=== PATIENT | female | born 1950 | race Caucasian/White ===

== ENCOUNTER 2017-09-13 05:20 | Inpatient (IN) | payer OTHER ==
[2017-08-29 08:54] LABS: HEMATOCRIT 41.8 % (37.0-47.0); MCH 30.2 pg (26.0-34.0); MCHC 33.4 g/dL (28.0-37.0); MCV 90.3 fL (80.0-100.0); RBC 4.63 mil/uL (4.20-5.00); WBC 7.9 thou/uL (4.0-11.0)
[2017-08-29 09:04] LABS: URINE BILIRUBIN NEGATIVE (Negative); URINE BLOOD TRACE (Negative); URINE COLOR YELLOW; URINE GLUCOSE-RANDOM* NEGATIVE (Negative); URINE KETONES NEGATIVE (Negative); URINE LEUKOCYTES-REFLEX NEGATIVE (Negative); URINE PROTEIN (DIPSTICK) NEGATIVE (Negative); URINE SPECIFIC GRAVITY <= 1.005 (1.003-1.035); URINE UROBILINOGEN 0.2 E.U./dl (0.2-1.0)
[2017-08-29 09:05] LABS: ALBUMIN 3.6 g/dL (3.4-5.0); CALCIUM 9.1 mg/dL (8.5-10.1); CREATININE 0.7 mg/dL (0.6-1.0); POTASSIUM 3.9 mmol/L (3.5-5.1)
[~2017-09-13] VITALS: Ht 162.6 cm; Wt 78.5 kg
[2017-09-13] VITALS (9 sets, daily range): BP systolic 99–147; BP diastolic 37–76
--- NOTE | ~2017-09-13 | O ---
[facility] [place] [address] OPERATIVE REPORT Name: MARIO ALBERTO WILLIAMSON Room #: 410-P ADM IN M.R.#: [id number] Admission: 09/13/17 Attend Phys: Norman Shirley MD Discharge: Date of : 52 Report #: [id number] THIS REPORT FOR: //name// CC: Sanchez Shirley DATE OF SERVICE: 09/13/2017 PREOPERATIVE DIAGNOSIS: Right knee degenerative joint disease, severe. POSTOPERATIVE DIAGNOSIS: Right knee degenerative joint disease, severe. OPERATIVE PROCEDURE: Right total knee arthroplasty. SURGEON: Norman Shirley MD SLEEPER CUTTER: Dorita Landon PA-C INDICATIONS FOR SLEEPER CUTTER: During the course of operation, extensive manipulation, retraction and limb positioning was required. This was afforded to me by my press assistant and feeder. ANESTHESIA: General. INDICATIONS: See hospital H and P. IMPLANTS UTILIZED: [employer] knee system. We used a Legion cruciate retaining high flexion press-fit femur, size 5. We used a size 4 tibial tray. We used a 9 mm insert and we used a 32 mm patella. DESCRIPTION OF PROCEDURE: After adequate general anesthesia had been obtained, the patient's right lower extremity was prepped and draped in the usual meticulous sterile fashion. The limb was exsanguinated with gravity and tourniquet inflated to 350 torr. Anterior midline incision was made, subQ divided sharply. Hemostasis obtained with electrocautery. Medial parapatellar incision was made. Infrapatellar fat pad excised. Medial release performed. Drill was used to drill distal femur. This hole was enlarged, irrigated, suctioned, and the intramedullary guide placed the full length of the femur. The distal femoral cutting guide pinned at appropriate height and the distal femoral cut was made. The measuring device determined that a size 5 was the appropriate size for this patient. We marked the distal femur and impacted the cutting guide into position. The anterior, posterior and chamfer cuts were made. Rongeur was used to remove additional osteophytes. At this time, the ACL was transected, tibia translated anteriorly, the menisci [facility] [address] [place] [address] OPERATIVE REPORT Name: MARIO ALBERTO WILLIAMSON Room #: 410-P ADM IN M.R.#: [id number] Admission: 09/13/17 Attend Phys: Norman Shirley MD Discharge: Date of : 52 Report #: [id number] were excised. A drill was used in the central portion of the tibia. This hole was enlarged, irrigated, suctioned, and the intramedullary guide placed along the tibia. Proximal tibial cutting guide was placed at appropriate height. Proximal tibia cut was made. We found that the 4 tray gave us the best coverage on the tibia. We put the trial components in position with a 9 spacer. She had the best flexion and extension gap. Patella was then measured, cutting guide clamped into place, patellar cut was made, 32 template gave us the best coverage. Pedicles were drilled, trial component put in position. We took the knee through several cycles of flexion and extension to optimize the tibial rotation. The patella tracked normally. Tibial rotation was marked, distal femur punched. Trial components were removed. Tibial keel cuts were made. We irrigated the knee with both pulse lavage and antibiotic irrigation and the bone plugs were placed in the proximal tibia and distal femur. The cement was vacuum mixed and when it reached the appropriate consistency the knee was thoroughly dried, the tibial tray was cemented in place, excess cement was removed. The polyethylene was impacted in place and the femur impacted in place and the knee was taken out to 30 degrees of flexion with uniform compression placed across components. Patellar button was then cemented into place and again excess cement was removed. At this time, the knee was irrigated and irrigation was allowed to rest in the wound while the cement fully cured. When it had done so, the knee was irrigated, dried thoroughly, and inspected. Drains were placed superolaterally both deep and superficial. Retinacular layer closed with combination of interrupted [id number] #1 Vicryl as well as a running #1 Tevdek. SubQ closed with 2-0 Monocryl, skin closed with freddy. Sterile compressive dressing applied. Tourniquet deflated. <ELECTRONICALLY SIGNED> By: Norman Shirley MD 09/15/17 [id number] Norman Shirley MD /nt
[~2017-09-13 05:20] MED LIST: AMBIEN 5 MG TABL5 M1 PO; ASPIR 8181 MG PO; ATORVASTATIN CA40 MG PO; CALCIUM 600 +1 EAC1 PO; CELEBREX 200 M200 M1 PO; CENTRUM SILVER1 EAC4 PO; CLARITIN10 MG PO; ESTRADIOL 1 MG T1 M1 VAG; FISH OIL 1,001000 M2 PO; GLUCOSAMINE CH1 EAC2 PO; PRILOSEC 20 MG20 MG PO; STOOL SOFTENER100 M1 PO; VITAMIN D-32000 UNIT PO
[2017-09-14 04:36] VITALS: BP 109/49
[2017-09-14 05:41] LABS: HEMATOCRIT 36.2 % (37.0-47.0); HEMOGLOBIN 12.3 gm/dL (12.0-15.0); MCH 30.7 pg (26.0-34.0); MCHC 33.9 g/dL (28.0-37.0); MCV 90.7 fL (80.0-100.0); RBC 3.99 mil/uL (4.20-5.00); WBC 16.1 thou/uL (4.0-11.0)
[2017-09-14 08:00] VITALS: BP 117/59
[2017-09-14 13:11] VITALS: BP 111/42
[2017-09-14 16:00] VITALS: BP 110/49
[2017-09-14 20:00] VITALS: BP 105/41
[2017-09-15 04:00] VITALS: BP 117/50
[2017-09-15 06:08] LABS: HEMOGLOBIN 11.6 gm/dL (12.0-15.0); MCHC 34.1 g/dL (28.0-37.0); RBC 3.73 mil/uL (4.20-5.00); RDW 13.2 % (10.5-14.5); WBC 11.9 thou/uL (4.0-11.0)
[2017-09-15 08:00] VITALS: BP 117/42
[2017-09-15 10:11] LABS: CALCIUM 8.3 mg/dL (8.5-10.1); CREATININE 0.8 mg/dL (0.6-1.0); POTASSIUM 3.6 mmol/L (3.5-5.1)
[2017-09-15 16:00] VITALS: BP 128/44
[2017-09-15 20:00] VITALS: BP 131/45
[2017-09-16 04:00] VITALS: BP 124/48
[2017-09-16 05:25] LABS: HEMATOCRIT 33.6 % (37.0-47.0); HEMOGLOBIN 11.6 gm/dL (12.0-15.0); MCHC 34.4 g/dL (28.0-37.0); MCV 90.3 fL (80.0-100.0); RBC 3.73 mil/uL (4.20-5.00); RDW 12.8 % (10.5-14.5); WBC 11.3 thou/uL (4.0-11.0)
[2017-09-16] MEDS ORDERED: XARELTO10 MG PO (07:02)
[2017-09-16 07:17] VITALS: BP 125/64
[2017-09-16 12:53] VITALS: BP 125/64
[2017-09-16 13:41] VITALS: BP 125/64
== END 2017-09-16 14:25 | disposition home health service (06) | DRG 470 ==
LOC: 4N 05:20 → TBA 05:20 → PRE 08:00 → 4N 11:39 → ENTRNSPT 09-16 14:00 → EDTRNSPTSTS 09-16 14:02 → 4N 09-16 14:25 → CMPTRNSPT 09-16 14:26
PROVIDERS: Internal Medicine; Orthopaedic Surgery
PROC: 0SRC0J9 Replacement of Right Knee Joint with Synthetic Substitute, Cemented, Open Approach (ICD-10-PCS; principal; 2017-09-13)
PROC: 3E0T3BZ Introduction of Anesthetic Agent into Peripheral Nerves and Plexi, Percutaneous Approach (ICD-10-PCS; principal; 2017-09-13)
DX: M17.11 Unilateral primary osteoarthritis, right knee (principal); E78.5 Hyperlipidemia, unspecified; K21.9 Gastro-esophageal reflux disease without esophagitis
CPT/HCPCS: 50010; 50101; 50415; 50915; 50954; 51130; 51225; 51320; 51412; 51771; 52001; 53078; 53364; 56525; 56527; 62110; 62900; 64043; 70005